=== PATIENT | male | born 1985 | race Caucasian/White ===

== ENCOUNTER 2018-09-28 13:59 | Emergency (ER) | payer OTHER ==
[~2018-09-28] VITALS: Ht 160 cm; Wt 56.0 kg
[2018-09-28 14:05] VITALS: BP 129/77; PULSE 77; RESP 18; Ht 160 cm; Wt 56.0 kg
[2018-09-28] MEDS ORDERED: CEPH-443 PO (14:21)
[2018-09-28] MEDS ORDERED: SULF1TAB31 PO (14:21)
[2018-09-28] MEDS ORDERED: DIPHTH/TET/ACEL PERTUSS (ADULT) 0.5 ML VIAL IM* ONE (14:30)
[2018-09-28] MEDS ORDERED: CEFTRIAXONE 250 MG INJ IM ONE (14:30)
[2018-09-28] MEDS ORDERED: LIDOCAINE 1% (MDV) 20 ML INJ SC ONE (14:30)
[2018-09-28] MEDS ORDERED: KETOROLAC 30 MG INJ IM STA (14:55)
--- NOTE | 2018-09-28 15:08 | ERD ---
ER Documentation Chief Complaint Chief Complaint HANDS PEELING, BACK ABCESS HPI 33-year-old male presenting to the ER for an abscess on the right arm, and skin peeling to his hands. Patient states he noticed the abscess about a week ago and states that has not been getting better since the initial onset. Patient s tates his hands began to peel 2 days ago. Patient denies any contact with any chemicals or any other skin irritants. Patient cannot pinpoint any substance that aggravated the skin on his hands. Patient states he was feeling a little feverish the other day. Patient denies any allergies to medication but states he is an IV drug user. Patient denies symptoms of back pain. ROS All systems reviewed and are negative except as per history of present illness. Medications Home Meds Active Scripts Cephalexin* (Keflex*) 500 Mg Capsule, 500 MG PO BID for 5 Days, CAP Prov:IRMA CANTU PA-C 09/28/18 Sulfamethoxazole/Trimethoprim* (Bactrim Ds* Tablet) 1 Each Tablet, 1 TAB PO BID, #14 TAB Prov:IRMA CANTU PA-C 09/28/18 Allergies Allergies: Coded Allergies: No Known Allergy (Unverified , 09/28/18) PMhx/Soc Medical and Surgical Hx: pt denies Medical Hx, pt denies Surgical Hx Hx Substance Use: Yes (heroine) Hx Tobacco Use: Yes Smoking Status: Current every day smoker FmHx Family History: No diabetes, No coronary disease, No other Physical Exam Vitals Vital Signs Date Temp Pulse Resp B/P (MAP) Pulse Ox O2 O2 Flow FiO2 Time Delivery Rate 09/28/18 98.2 77 18 129/77 99 14:05 (94) Physical Exam Const: No acute distress Neck: Full range of motion. No meningismus. Resp: Clear to auscultation bilaterally Cardio: Regular rate and rhythm, no murmurs Abd: Soft, non tender, non distended. Normal bowel sounds Skin: Patient's skin dry cracked and peeling bilateral hands. Negative Nikolsky sign, no presence of drainage and no pain on palpation. Back: No midline or flank tenderness Ext: Large fluctuant mass on the right upper arm, patient has good pulse motor sensation in the extremity. Results 24 hrs Current Medications Medications Dose Sig/Jose Start Time Status Last (Trade) Ordered Route PRN Stop Time Admin Dose Reason Admin Lidocaine 20 ml ONCE ONCE 6/11/19 DC 09/28/18 (Xylocaine SC 14:30 14:25 1% (Mdv) 20 09/28/18 14:31 ml) Ceftriaxone 250 mg ONCE ONCE 09/28/18 DC 09/28/18 Sodium IM 14:30 14:24 (Rocephin) 09/28/18 14:31 Diphtheria/ 0.5 ml ONCE ONCE 09/28/18 DC 09/28/18 Tetanus/Acell IM* 14:30 14:37 Pertussis 09/28/18 14:31 (Adacel) Ketorolac 30 mg ONCE STAT 09/28/18 DC Tromethamine IM 14:55 (Toradol) 09/28/18 14:56 Procedures/MDM ED course: Rocephin Tdap Toradol Lidocaine I&D The patient was stable throughout the ED course. The patient and/or family informed of laboratory and diagnostic imaging results throughout the ED course. Procedures: INCISION AND DRAINAGE: The patient was verbally consented prior to procedure. Patient was explained the risks, benefits and alternatives to this procedure. Location: Right arm Abscess size: 10 cm Anesthesia: local 1% lidocaine, 5 cc Preparation: The area was prepped in a sterile fashion using betadine x3 cleanses. A sterile field was prepared. Technique: A sterile 11 blade scalpel was used to make a 1 cm linear incision into the abscess. Procedure: A midline abscess incision was made using a sterile scalpel in a linear fashion. Purulent material was expressed with direct pressure. Blunt probing was used to break up loculations. Bleeding was minimal. Packing: half iodoform packing was placed into the wound. The patient tolerated the procedure well with no complications. The wound was dressed in sterile gauze. The patient was neurovascularly intact post-procedure. Post-procedural wound care was discussed with the patient. Medications given in ER: Rocephin Tdap Toradol Patient tolerated medication well with no adverse reactions. Patient reported improvement in pain. Medical decision makin-year-old male presenting to the ED for abscess to his right arm and dry peeling skin to both of his hands. Patient admits to IV drug use and states the last time he used was 1 week ago. Patient states he has been feeling a little fevers the last few nights. Patient is presenting to the ED vitals within stable limits and afebrile. Patient's physical exam was remarkable for a 10 cm abscess in his right upper arm that was successfully drained and packaged and bandaged up. Patient's hands appear dry and cracked but no pain to palpation patient has good motor function in the extremities and neurovascular exam was unremarkable. Negative Nikolsky sign, at this time I have low suspicion for Espinal-Telly syndrome, sepsis, toxic shock syndrome, cellulitis, drug-induced adverse skin reaction,. Patient was counseled on the increased risk of infection with IV drug use was advised to discontinue this habit. Patient was advised to follow-up in 2 days for wound check. Patient was advised to take antibiotics appropriately. Patient was given first dose of Rocephin in the ER and his pain was treated with Toradol patient does not know when his last tetanus shot was so he was given a Tdap in the ER. On reexamination patient appears to be doing much better and states his pain has improved. Patient was advised if symptoms worsen return to ER immediately. Patient is in agreement to treatment plan and plans to follow-up in 2 days for wound check. All questions answered upon discharge Prescription for home: Keflex Bactrim Discharge: At this time, patient is stable for discharge and outpatient management. I have instructed the patient to follow-up with his\her primary care physician in 1 to 2 days. I have discussed with the patient the possibility of needing to see a specialist for further work-up and imaging studies if symptoms persist. I have instructed the patient to promptly return to the ER for any new or worsening symptoms including increased pain, fever, nausea, vomiting, weakness or LOC. The patient and\or family expressed understanding of and agreement with this plan. All questions were answered. Home care instructions were provided. Disclaimer: Inadvertent spelling and grammatical errors are likely due to EHR\dictation software use and do not reflect on the overall quality of patient care. Also, please note that the electronic time recorded on the note does not necessarily reflect the actual time of the patient encounter. Departure Diagnosis: Primary Impression: Abscess Additional Impression: Skin infection Condition: Stable Patient Instructions: Abscess, Incision And Drainage Referrals: COMMUNITY CLINICS YOU HAVE RECEIVED A MEDICAL SCREENING EXAM AND THE RESULTS INDICATE THAT YOU DO NOT HAVE A CONDITION THAT REQUIRES URGENT TREATMENT IN THE EMERGENCY DEPARTMENT. FURTHER EVALUATION AND TREATMENT OF YOUR CONDITION CAN WAIT UNTIL YOU ARE SEEN IN YOUR DOCTORS OFFICE WITHIN THE NEXT 1-2 DAYS. IT IS YOUR RESPONSIBILITY TO MAKE AN APPOINTMENT FOR FOLOW-UP CARE. IF YOU HAVE A PRIMARY DOCTOR --you should call your primary doctor and schedule an appointment IF YOU DO NOT HAVE A PRIMARY DOCTOR YOU CAN CALL OUR PHYSICIAN REFERRAL HOTLINE AT IF YOU CAN NOT AFFORD TO SEE A PHYSICIAN YOU CAN CHOSE FROM THE FOLLOWING [facility] [address] [facility] [address] [facility] [address] [facility] [address] [facility] [address] [facility] [address] [facility]. [facility] YOU HAVE RECEIVED A MEDICAL SCREENING EXAM AND THE RESULTS INDICATE THAT YOU DO NOT HAVE A CONDITION THAT REQUIRES URGENT TREATMENT IN THE EMERGENCY DEPARTMENT. FURTHER EVALUATION AND TREATMENT OF YOUR CONDITION CAN WAIT UNTIL YOU ARE SEEN IN YOUR DOCTORS OFFICE WITHIN THE NEXT 1-2 DAYS. IT IS YOUR RESPONSIBILITY TO MAKE AN APPOINTMENT FOR FOLOW-UP CARE. IF YOU HAVE A PRIMARY DOCTOR --you should call your primary doctor and schedule and appointment IF YOU DO NOT HAVE A PRIMARY DOCTOR YOU CAN CALL OUR PHYSICIAN REFERRAL HOTLINE AT . IF YOU CAN NOT AFFORD TO SEE A PHYSICIAN YOU CAN CHOSE FROM THE FOLLOWING [facility]: [facility] [address] [place] [address] [facility] [address] [place] [address] [facility]ED WITH [facility] [address] [place] [address] Additional Instructions: If you experience fever, increased pain, worsening skin peeling in the hands return to the ER immediately.Follow up in 2 days in your clinic for wound check. Take antibiotics as instructed IRMA CANTU PA-C Sep 28, 2018 15:08
== END 2018-09-28 15:15 | disposition home or self-care (01) ==
LOC: FTE 13:59
DX: L02.413 Cutaneous abscess of right upper limb (principal); F17.210 Nicotine dependence, cigarettes, uncomplicated; Z23 Encounter for immunization
CPT/HCPCS: 10060; 90471; 90715; 96372; J0696; J1885; Z7502; Z7610